=== PATIENT | male | born 1990 | race Caucasian/White ===

== ENCOUNTER 2020-10-26 12:46 | Emergency (ER) | payer SELFPAY ==
--- NOTE | 2020-10-26 14:14 | ER ---
Nurse's Notes [facility] Name: Bowen West Age: 30 yrs Sex: Male : 1990 Arrival Date: 10/26/2020 Time: 12:50 Bed 12 Private MD: Diagnosis: Otitis media, unspecified, right ear;Unspecified otitis externa, right ear Presentation: 10/26 13:11 Chief complaint: Patient states: last night it started draining blood from my right tw2 ear. Coronavirus screen: headache, Client presents with at least one sign or symptom that may indicate coronavirus-19. Standard/surgical mask placed on the client. Provider contacted for isolation considerations. Ebola Screen: Patient denies travel to an Ebola-affected area in the 21 days before illness onset. Initial Sepsis Screen: Does the patient meet any 2 criteria? No. Patient's initial sepsis screen is negative. Does the patient have a suspected source of infection? No. Patient's initial sepsis screen is negative. Risk Assessment: Do you want to hurt yourself or someone else? Patient reports no desire to harm self or others. Onset of symptoms was October 26, 2020. 13:11 Method Of Arrival: Ambulatory tw2 13:11 Acuity: KAITLYNN 4 tw2 Triage Assessment: 13:17 General: Appears in no apparent distress. Behavior is calm, cooperative, appropriate tw2 for age. Pain: Complains of pain in right ear. EENT: Reports pain in right ear. Historical: - Allergies: 13:16 Aleve (zombie genitals); tw2 - Home Meds: 13:16 None [Active]; tw2 - PMHx: 13:16 None; tw2 - PSHx: 13:16 Ear Tubes; "pre-cancerous cyst in my throat when i was 13 that was removed"; tw2 - Immunization history:: Adult Immunizations. - Social history:: Smoking status: Patient reports the use of cigarette tobacco products, smokes one pack cigarettes per day. smokes two packs cigarettes per day. Vital Signs: 13:11 BP 138 / 98; Pulse 58; Resp 17; Temp 97.9(TE); Pulse Ox 100% on R/A; Weight 93.44 kg tw2 (R); Height 5 ft. 10 in. (177.80 cm) (R); 13:11 Body Mass Index 29.56 (93.44 kg, 177.80 cm) tw2 ED Course: 12:50 Patient arrived in ED. ds1 13:13 Triage completed. tw2 13:17 Arm band placed on. tw2 14:13 [facility] Friedman [facility]C [facility] kb 14:13 João Paiz MD is Attending Physician. kb 14:14 Lucy Gonzalez MD is Referral Physician. kb Administered Medications: No medications were administered Outcome: 14:14 Discharge ordered by . kb 14:20 Patient left the ED. kb Signatures: Alma Friedman FNP-C FNP-Yareli Nelson ds1 Jane Magaña, RN RN tw2
--- NOTE | 2020-10-26 14:15 | EDPHYS ---
Physician Documentation [facility] Name: Bowen West Age: 30 yrs Sex: Male : 1990 Arrival Date: 10/26/2020 Time: 12:50 Bed 12 Private MD: LURDES Physician Jãoo Paiz HPI: 10/26 14:19 This 30 yrs old Male presents to ER via Ambulatory with complaints of Ear kb Pain, Dizziness. 14:19 The patient presents with drainage, a fullness, hearing loss. The complaints affect the kb right ear. Onset: The symptoms/episode began/occurred 5 month(s) ago. Modifying factors: The symptoms are alleviated by nothing, the symptoms are aggravated by nothing. Associated signs and symptoms: The patient has no apparent associated signs or symptoms. Severity of symptoms: At their worst the symptoms were moderate in the emergency department the symptoms are unchanged. The patient has not experienced similar symptoms in the past. The patient has not recently seen a physician. Pt reports drainage from right ear intermittently for 5 months as well as decreased hearing. . Historical: - Allergies: 13:16 Aleve (zombie genitals); tw2 - Home Meds: 13:16 None [Active]; tw2 - PMHx: 13:16 None; tw2 - PSHx: 13:16 Ear Tubes; "pre-cancerous cyst in my throat when i was 13 that was removed"; tw2 - Immunization history:: Adult Immunizations. - Social history:: Smoking status: Patient reports the use of cigarette tobacco products, smokes one pack cigarettes per day. smokes two packs cigarettes per day. ROS: 14:19 Constitutional: Negative for fever, chills, and weight loss, Respiratory: Negative for kb shortness of breath, cough, wheezing, and pleuritic chest pain, MS/Extremity: Negative for injury and deformity, Skin: Negative for injury, rash, and discoloration, Neuro: Negative for headache, weakness, numbness, tingling, and seizure. 14:19 ENT: Positive for drainage from ear(s), ear pain. Exam: 14:19 Constitutional: This is a well developed, well nourished patient who is awake, alert, kb and in no acute distress. Head/Face: Normocephalic, atraumatic. Respiratory: Respirations even and unlabored. No increased work of breathing, no retractions or nasal flaring. Skin: Warm, dry with normal turgor. Normal color. MS/ Extremity: Pulses equal, no cyanosis. Neurovascular intact. Full, normal range of motion. Neuro: Awake and alert, GCS 15, oriented to person, place, time, and situation. Moves all extremities. Normal gait. 14:19 ENT: External ear(s): are unremarkable, Ear canal(s): purulent discharge, that is moderate, in the right canal, swelling, that is minimal, of the right canal, TM's: bulging, on the right, fluid levels, on the right, Examination of the other ear shows no obvious abnormality. Vital Signs: 13:11 BP 138 / 98; Pulse 58; Resp 17; Temp 97.9(TE); Pulse Ox 100% on R/A; Weight 93.44 kg tw2 (R); Height 5 ft. 10 in. (177.80 cm) (R); 13:11 Body Mass Index 29.56 (93.44 kg, 177.80 cm) tw2 MDM: 14:13 Patient medically screened. kb 14:18 Data reviewed: vital signs, nurses notes. Data interpreted: Pulse oximetry: on room air kb is 100 %. Interpretation: normal. Counseling: I had a detailed discussion with the patient and/or guardian regarding: the historical points, exam findings, and any diagnostic results supporting the discharge/admit diagnosis, the need for outpatient follow up, an ENT specialist, to return to the emergency department if symptoms worsen or persist or if there are any questions or concerns that arise at home. Administered Medications: No medications were administered Disposition: 10/27 11:19 Co-signature as Attending Physician, João Paiz MD I agree with the assessment and umu plan of care. Disposition: 10/26/20 14:14 Discharged to Home. Impression: Otitis media, unspecified, right ear, Unspecified otitis externa, right ear. - Condition is Stable. - Discharge Instructions: Ear Drops, Adult, Otitis Externa, [id number], Otitis Media, Adult, [id number]. - Prescriptions for Cortisporin 3.5- 10,000-1 mg/mL-unit/mL-% Otic solution - instill 4 drop by OTIC route 4 times per day for 7 days; 1 bottle. Amoxicillin 875 mg Oral Tablet - take 1 tablet by ORAL route every 12 hours for 10 days; 20 tablet. - Medication Reconciliation Form, Thank You Letter, Antibiotic Education, Prescription Opioid Use form. - Follow up: Lucy Gonzalez MD; When: 5 - 6 days; Reason: Recheck today's complaints. Follow up: Emergency Department; When: As needed; Reason: Worsening of condition. Signatures: Alma Friedman, SALMON TROLL FISHER-C SALMON TROLL FISHER-Ckb João Paiz MD MD cha Wise, Tara, RN RN tw2 Corrections: (The following items were deleted from the chart) 10/26 14:15 14:14 10/26/2020 14:14 Discharged to Home. Impression: Otitis media, unspecified, right kb ear; Unspecified otitis externa, right ear. Condition is Stable. Forms are Medication Reconciliation Form, Thank You Letter, Antibiotic Education, Prescription Opioid Use. Follow up: Lucy Gonzalez; When: 5 - 6 days; Reason: Recheck today's complaints. kb 14:20 14:15 10/26/2020 14:14 Discharged to Home. Impression: Otitis media, unspecified, right kb ear; Unspecified otitis externa, right ear. Condition is Stable. Discharge Instructions: Ear Drops, Adult, Otitis Externa, [id number], Otitis Media, Adult, [id number]. Prescriptions for Cortisporin 3.5-10,000-1 mg/mL-unit/mL-% Otic solution - instill 4 drop by OTIC route 4 times per day for 7 days; 1 bottle, Amoxicillin 875 mg Oral Tablet - take 1 tablet by ORAL route every 12 hours for 10 days; 20 tablet. and Forms are Medication Reconciliation Form, Thank You Letter, Antibiotic Education, Prescription Opioid Use. Follow up: Lucy Gonzalez; When: 5 - 6 days; Reason: Recheck today's complaints. Follow up: Emergency Department; When: As needed; Reason: Worsening of condition. kb
[2020-10-26 14:34] VITALS: BP 138/98; TEMP 97.9; O2SAT 100
== END 2020-10-26 14:20 | disposition home or self-care (01) ==
LOC: ER 12:46
DX: H60.91 Unspecified otitis externa, right ear (principal); H66.91 Otitis media, unspecified, right ear; F17.210 Nicotine dependence, cigarettes, uncomplicated; Z88.6 Allergy status to analgesic agent
CPT/HCPCS: 99281